=== PATIENT | male | born 2000 | race African-American/Black ===

== ENCOUNTER 2021-09-12 10:13 | Emergency (ER) | payer SELFPAY ==
[~2021-09-12] VITALS: Ht 180.3 cm; Wt 127.3 kg
[2021-09-12 10:18] VITALS: TEMP 98.2
[2021-09-12] MEDS ORDERED: FLEXERIL 1010 MG/TAB PO (10:58)
[2021-09-12 11:11] VITALS: BP 152/90; PULSE 64
== END 2021-09-12 11:13 | disposition home or self-care (01) ==
LOC: COL.ER 10:13
DX: M54.50 Low back pain, unspecified (principal)
CPT/HCPCS: J1885

== ENCOUNTER 2021-09-19 07:38 | Emergency (ER) | payer SELFPAY ==
[~2021-09-19] VITALS: Ht 177.8 cm; Wt 127.3 kg
[~2021-09-19 07:38] MED LIST: FLEXERIL 1010 MG/TAB PO
[2021-09-19 07:43] VITALS: TEMP 98.1
[2021-09-19] MEDS ORDERED: ROBAXIN 75750 MG/TAB PO (08:05)
[2021-09-19] MEDS ORDERED: MEDROL 4MG DOSPA4 MG PO (08:05)
[2021-09-19 08:15] VITALS: BP 116/84; PULSE 98
== END 2021-09-19 08:15 | disposition home or self-care (01) ==
LOC: COL.ER 07:38
DX: M54.50 Low back pain, unspecified (principal); E66.9 Obesity, unspecified

== ENCOUNTER 2023-12-03 21:09 | Emergency (ER) | payer OTHER ==
[~2023-12-03] VITALS: Ht 172.7 cm; Wt 104.5 kg
[~2023-12-03 21:09] MED LIST changes: +MEDROL 4MG DOSPA4 MG PO; +ROBAXIN 75750 MG/TAB PO
[2023-12-03 21:13] VITALS: BP 136/83; TEMP 97.8
[2023-12-03] MEDS ORDERED: cefTRIAXone 1 G,Lidocaine PF 1% 2.1 ML IM ONE (21:45)
[2023-12-03] MEDS ORDERED: CEPHALEXIN500 M1 PO (22:15)
[2023-12-03] MEDS ORDERED: NORCO 325 MG-51 TAB PO (22:15)
[2023-12-03 22:24] VITALS: PULSE 87
== END 2023-12-03 22:24 | disposition home or self-care (01) ==
LOC: COL.ER 21:09
DX: Q84.6 Other congenital malformations of nails (principal); Z88.0 Allergy status to penicillin; Z88.1 Allergy status to other antibiotic agents
CPT/HCPCS: J0696